=== PATIENT | male | born 1940 | race Caucasian/White ===

== ENCOUNTER → 2018-06-30 10:53 | Outpatient (BNVA) | payer OTHER, MEDICARE, SELFPAY | PROVIDERS: Visit Provider Nurse Practitioner Gerontology | DX: N40.1 Benign prostatic hyperplasia with lower urinary tract symptoms (principal); N39.41 Urge incontinence; I10 Essential (primary) hypertension | CPT/HCPCS: 51798; 81003; 99204 ==

== ENCOUNTER → 2018-07-22 11:18 | Outpatient (BNVA) | payer OTHER, MEDICARE, SELFPAY | PROVIDERS: Visit Provider Nurse Practitioner Gerontology | DX: N40.1 Benign prostatic hyperplasia with lower urinary tract symptoms (principal); N39.41 Urge incontinence | CPT/HCPCS: 51798; 99213 ==

== ENCOUNTER 2020-10-10 06:29 | Day surgery (SDC) | payer OTHER, SELFPAY ==
[2020-10-10 06:55] VITALS: BP 122/78; PULSE 52; RESP 16; TEMP 36.5; O2SAT 98
[2020-10-10] MEDS: Tropicam./Phenyleph. (1/2.5%) 5 ML BTL OD ×3 (06:55→07:06)
--- NOTE | 2020-10-10 07:04 | W.ANESPRE ---
General Info Date of Service Date Performed: 10/10/20 Height: 6 ft Weight: 105.7 kg Body Mass Index (BMI): 31.6 Surgical Procedure: Operation Date: 10/10/20 07:40 Proposed Procedures Side Surgeon p Cataract Extraction with IOL Implant Right Bebeto Dunaway MD Meds Allergies and Home Medications Allergies Allergy/AdvReac Type Severity Reaction Status Date / Time oxybutynin Allergy sleepy Verified 10/10/20 06:49 trospium Allergy Verified 10/10/20 06:49 ibuprofen [From Motrin] AdvReac Verified 10/10/20 06:49 Home Medication Medication Instructions Recorded allopurinol 300 mg tablet 300 mg PO DAILY 06/30/18 ascorbic acid (vitamin C) 500 mg 1,000 mg PO DAILY cap 06/30/18 capsule atenolol 25 mg tablet 12.5 mg PO DAILY tab 06/30/18 camphor-menthol 0.5 %-0.5 % lotion 1 applic TP BID-TID PRN 06/30/18 carboxymethylcellulose sodium 0.5 1 drp OP BID 06/30/18 % eye drops in a dropperette clotrimazole 1 % topical cream 1 applic TP BID 06/30/18 colchicine 0.6 mg capsule 0.6 mg PO DAILY 06/30/18 diclofenac sodium 50 mg 50 mg PO TID PRN 06/30/18 tablet,delayed release docusate sodium 100 mg capsule 100 mg PO BID 06/30/18 gabapentin 300 mg capsule 300 mg PO TID 06/30/18 losartan 100 mg tablet 100 mg PO DAILY 06/30/18 multivitamin 1 cap PO DAILY 06/30/18 omega-3 fatty acids 1,000 mg 1,000 mg PO DAILY 06/30/18 capsule omeprazole 20 mg capsule,delayed 20 mg PO DAILY 06/30/18 release polyethylene glycol 3350 17 gram 17 gm PO DAILY 06/30/18 oral powder packet psyllium 2 tsp PO BID gm 06/30/18 tamsulosin 0.4 mg capsule 0.8 mg PO DAILY cap 06/30/18 triamterene 75 1 tab PO DAILY 06/30/18 mg-hydrochlorothiazide 50 mg tablet mirabegron 25 mg tablet,extended 25 mg PO DAILY #90 tab 07/22/18 release 24 hr cholecalciferol (vitamin D3) 2,000 unit PO DAILY 10/06/20 nitroglycerin 0.4 mg SUBLINGUAL DIRECTED 10/06/20 nystatin 1 applic TOPICAL DAILY 10/06/20 Current Visit Medications: Current Medications Generic Name Dose Route Start Last Admin Trade Name Freq PRN Reason Stop Dose Admin Acetaminophen 1,000 mg 10/10/20 06:00 Acetaminophen 500 Mg Tab PO Q4H PRN PRN Miscellaneous Medication 0 ml 10/10/20 06:00 Prednisolone 1%, Moxifloxacin 0.5%, Nepafenac 0.1% 5ml Btl OD DIRECTED GENE Miscellaneous Medication 0 ml 10/10/20 06:00 10/10/20 07:00 Tropicam./Phenyleph. 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 Urge incontinence N39.41 Nuclear sclerotic cataract of right eye H25.11 Cortical cataract of right eye H26.9 Medical History Medical History Age-related macular degeneration Allergic rhinitis Angular cheilitis Benign neoplasm of adrenal gland Bursitis of shoulder Claustrophobia Degenerative joint disease of knee Dermatophytosis, groin DJD (degenerative joint disease) External thrombosed hemorrhoids GERD (gastroesophageal reflux disease) Gout Hammer toe Hemorrhoids HTN (hypertension) Hyperesthesia IBS (irritable bowel syndrome) Lumbar radiculopathy Multifactorial gait disorder Uses cane to ambulate Nephrolithiasis Nevus, non-neoplastic Nocturia Obesity Onychia and paronychia of toe Pain due to varicose veins of lower extremity Peripheral neuropathy Seborrheic dermatitis Seborrheic keratoses Sensorineural hearing loss Vertigo Surgical History Surgical History History of laparoscopy Hx of cholecystectomy Hx of tonsillectomy Tobacco Smoking/Tobacco Use Status: Former Tobacco Use Alcohol Alcohol Intake: current Alcohol intake frequency: a few times a week Alcohol type: wine Substance Use Substance use type: does not use Vital Signs and Lab Results Vital Signs Most Recent Vital Signs in EMR: Most Recent Vital Signs Temp Pulse Resp BP Pulse Ox 36.5 C 52 L 16 122/78 98 10/10/20 06:55 10/10/20 06:55 10/10/20 06:55 10/10/20 06:55 10/10/20 06:55 Lab Results Blood Type / Crossmatch: No Data to Display Complete Blood Count: No Data to Display Complete Metabolic Panel: No Data to Display Liver Function Panel: No Data to Display Coagulation Panel: No Data to Display Cardiac Panel: No Data to Display Arterial Blood Gas: No Data to Display Venous Blood Gas: No Data to Display Pancreas Panel: No Data to Display Thyroid Panel: No Data to Display Infectious Disease: No Data to Display Blood Cultures: No Data to Display Toxicology Panel: No Data to Display Anesthesia Assessment and Plan Anesthesia History Personal History: No History of Anesthesia Complications Family History: No Family History of Anesthesia Complications Exercise Tolerance Exercise Tolerance: Metabolic Equivalents>4 Pertinent Negatives Pertinent Negatives: No Major Cardiovascular Symptoms or Complaints and No Major Pulmonary Symptoms or Complaints Cardiac & Pulmonary Exam Cardiac Exam: Normal S1/S2 Heart Sounds Pulmonary Exam: Clear Bilateral Breath Sounds Airway Exam Known Difficult Airway: No Mallampati Class: 2 Mouth Opening: Normal (> 3cm) Thyromental Distance: Greater than 3 cm Neck Range of Motion: Full ROM Neck Circumference: Normal Teeth Condition: Removable Dentures/Plates Upper ASA Classification ASA Score: ASA 2 Emergency Case?: No NPO Status NPO Status: NPO Clears >2 hours, Solids >8 hours Anesthesia Plan Resuscitation Status: Full Code Anesthesia Technique: MAC Anesthesia Airway Planned: Natural Airway Monitors Used: Standard Monitors
[2020-10-10 07:07] VITALS: BMI 31.6
[2020-10-10] MEDS: Duovisc Viscoelastic System EACH 1 EACH (07:43)
[2020-10-10] MEDS: Lidocaine 2% Jelly 6 ML SYR (07:43)
[2020-10-10] MEDS: Povidone-Iodine Ophth 30 ML BTL (07:44)
[2020-10-10] MEDS: Balanced Salt Soln.-PLUS 500 ML BAG (07:45)
[2020-10-10] MEDS: Lidocaine 1% Pres-Free 5 ML VIAL (07:45)
[2020-10-10] MEDS: Tetracaine 0.5% 4 ML BTL OD (07:47)
--- NOTE | 2020-10-10 08:11 | PDOC.DSDIS_ITS ---
Discharge Plan Disposition Patient Disposition: HOME Condition: Good Discharge Details Reason For Visit: Cataract Attending Provider: Bebeto Dunaway Primary Care Provider: Kwesi Card [facility], [place] and New Rx's Prescriptions: No Action allopurinol 300 mg tablet 300 mg PO DAILY RF: 0 ascorbic acid (vitamin C) 500 mg capsule 1,000 mg PO DAILY RF: 0 atenolol 25 mg tablet 12.5 mg PO DAILY RF: 0 camphor-menthol 0.5-0.5 % lotion 1 applic TP BID-TID PRNRF: 0 carboxymethylcellulose sodium 0.5 % dropperette 1 drp OP BID RF: 0 clotrimazole 1 % cream 1 applic TP BID RF: 0 colchicine 0.6 mg capsule 0.6 mg PO DAILY RF: 0 diclofenac sodium 50 mg tablet,delayed release (DR/EC) 50 mg PO TID PRNRF: 0 docusate sodium 100 mg capsule 100 mg PO BID RF: 0 omega-3 fatty acids [Fish Oil Concentrate] 1,000 mg capsule 1,000 mg PO DAILY RF: 0 gabapentin 300 mg capsule 300 mg PO TID RF: 0 triamterene-hydrochlorothiazid 75-50 mg tablet 1 tab PO DAILY RF: 0 losartan 100 mg tablet 100 mg PO DAILY RF: 0 multivitamin capsule 1 cap PO DAILY RF: 0 omeprazole 20 mg capsule,delayed release(DR/EC) 20 mg PO DAILY RF: 0 polyethylene glycol 3350 17 gram powder in packet 17 gm PO DAILY RF: 0 psyllium powder 2 tsp PO BID RF: 0 tamsulosin 0.4 mg capsule 0.8 mg PO DAILY RF: 0 Myrbetriq 25 mg tablet extended release 24 hr 25 mg PO DAILY Qty: 90 RF: 3 nystatin 100,000 unit/gram Cream 1 applic TOPICAL DAILY RF: 0 nitroglycerin 0.4 mg Tablet, Sublingual 0.4 mg sublingual DIRECTED RF: 0 cholecalciferol (vitamin D3) 25 mcg (1,000 unit) Capsule 2,000 unit PO DAILY RF: 0 Discharge Instructions Stand Alone Forms: Post-op Topical Cataract, Tapan Ganey (DSU) Discharge Orders Discharge Orders: Discharge Order (Routine); Ordered 10/10/20 Ordered By: Bebeto Dunaway DS: Diagnosis Discharge Diagnosis (1) Cortical cataract of right eye: Status: Resolved (2) Nuclear sclerotic cataract of right eye: Status: Resolved (3) 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
--- NOTE | 2020-10-10 08:14 | ROE_ITS ---
Date of service: 10/10/20 Time of Service: 08:14 Operative Note Operative Note DATE OF PROCEDURE: 10/10/20 PRE-OP DIAGNOSIS: Nuclear/cortical cataract, right eye POST-OP DIAGNOSIS: same PROCEDURE: 1. Cataract extraction by phacoemulsification with intraocular lens implantation, right eye, with pupillary expansion device SURGEON: Bebeto Dunaway ANESTHESIA TYPE: Local By Surgeon and MAC Refer to Anesthesia Record PATHOLOGY: none sent COMPLICATIONS: None Patient was transported to: same day Patient's condition: stable Implants: [employer] / [employer] Tecnis [id number] Indications: Progressive decreased vision due to cataract, right eye, with poorly dilating pupil Procedure Description: CATARACT SURGERY OPERATIVE REPORT PREOPERATIVE DIAGNOSIS: 1. Nuclear/cortical cataract, right eye 2. Poorly dilating pupil, right eye POSTOPERATIVE DIAGNOSIS: Same OPERATION: 1. Cataract extraction using phacoemulsification with posterior chamber intraocular lens implant, right eye. 2. Pupillary dilation and iris stabilization using Malyugin Ring IOL: IOL Bench Boring Machine Operator/Model: Kai & Kai / RANDY Tecnis [id number] IOL Power: + 19.0 diopters IOL Serial Number: [id number] Optic Diameter: 6.0mm Haptic/Overall Diameter: 13.0mm PHACO INFO: [employer] Vision System with OZil and [employer] Cumulative Dispersed Energy (CDE): 8.07 seconds SURGEON: Bebeto Dunaway MD, REGULO ANESTHESIA: Monitored Anesthesia Care (MAC), with local sub-tenon's anesthetic infiltration COMPLICATIONS: None SPECIMENS: None INDICATIONS FOR PROCEDURE: The patient is an 80-year-old gentleman with history of exudative ARMD. He has undergone intravitreal injections for treatment. He has developed a symptomatic nuclear/cortical cataract of the right eye. The option of cataract surgery was offered to the patient and he felt he was symptomatic enough that he wished to proceed. PROCEDURE: The correct surgical eye was identified and marked as the right eye and the pupil was dilated in the preoperative area using mydriatics and cycloplegics. The dilated pupil size was 4.0 mm. He elected to proceed without oral sedation. The patient was brought to the operating room where cardiopulmonary monitoring was instituted and surgical time-out was performed, confirming the correct operative eye and IOL power. Topical anesthesia was administered and ophthalmic povidone-iodine 5% was instilled into the conjunctival fornices. Lidocaine gel was applied to the cornea and the niki-ocular area was prepped with Betadine 10% solution and draped in the usual sterile fashion for intraocular surgery, including an aperture drape. A Tegaderm transparent film dressing was cut in half and used to cover the lashes and lid margins. Care was taken to sequester the lashes and lid margins under the Tegaderm dressing. A lid speculum was placed between the lids of the operative eye and the Sabas-Cuco operating microscope was maneuvered into position. Mariya scissors were then used to make a conjunctival buttonhole approximately 6mm posterior to the limbus in the inferonasal quadrant. Blunt dissection was carried out to expose bare sclera, and a blunt-tipped sub-tenon?s anesthesia cannula was introduced and passed posteriorly along the globe where non- preserved plain lidocaine was injected into posterior sub-Tenon?s space. A sideport knife was used to make a paracentesis port inferiortemporally. I ntraocular phenylephrine/lidocaine was injected in the anterior chamber. The anterior chamber was filled with viscoelastic. A 2.4mm keratome knife was used to create a half-thickness groove at the limbus and then to construct a three- plane near-clear corneal tunnel extending 2.0mm into clear cornea superiortemporally. A 7.0 mm Malyugin Ring was then inserted into the pupillary space and engaged with the Kuglen hook. The iris was noted to be very thin and floppy. A flap was raised on the anterior capsule and capsulorhexis forceps were used to complete a continuous curvilinear capsulorhexis of 5.5 mm. Balanced salt solution was then used to perform cortical cleaving hydrodissection and nuclear hydrodelineation until the lens could be freely rotated within the capsular bag. The lens nucleus was then disassembled and removed within the capsular bag and iris plane using phacoemulsification. Residual cortical material was removed using the 45-degree angled silicone I/A tip with 0.3mm port. The posterior capsule was carefully polished to remove as much residual lens epithelial cells as safely possible. The capsular bag was then inflated and the anterior chamber deepened with viscoelastic. The lens implant described above was inserted into the capsular bag using the RANDY [place] Injector. A Kuglen hook was used to dial the IOL into position. The Malyugin Ring was removed in the reverse order of its insertion. Residual viscoelastic was then removed first from posterior to the IOL, then from the anterior chamber using the I/A handpiece. The lens implant was noted to center nicely within the capsular bag. The incisions were stromally hydrated, and the anterior chamber was reformed using BSS. Then 0.5cc of moxifloxacin 1.0mg/ml were injected into the capsular bag and anterior chamber. The incisions were checked with a Weck spear and found to be secure. Several drops of ophthalmic povidone-iodine 5% were then applied to the eye followed by two drops of Imprimis combination prednisolone/moxifloxacin/nepafenac solution. The drapes were removed and a clear plastic protective eye shield was placed over the eye. The patient was then returned to Same Day Surgery in stable condition.
[2020-10-10 08:19] VITALS: BP 125/83; PULSE 47; RESP 16; TEMP 36.4; O2SAT 98
--- NOTE | 2020-10-10 08:24 | W.ANESPOSTOP ---
Postoperative Evaluation Date, Time and Location Date Performed: 10/10/20 Time Performed: 08:25 Patient Location: Day Surgery Unit Vital Signs Most Recent Imported Vital Signs: Most Recent Vital Signs Temp Pulse Resp BP Pulse Ox 36.4 C L 47 L 16 125/83 98 10/10/20 08:19 10/10/20 08:19 10/10/20 08:19 10/10/20 08:19 10/10/20 08:19 Pain Score Most Recent Pain Score: Most Recent Pain Score Pain Level 0 10/10/20 08:19 Assessment Mental Status: Awake (Alert & Oriented to Patient Baseline) Airway and Respiratory Function: Patent airway with normal (patient baseline) respiratory exam Cardiovascular Function: Hemodynamically Stable Hydration Status: Adequately Hydrated Nausea & Vomiting: No Nausea or Vomiting Pain: Pt. Denies Any Pain Peripheral Nerve Block: Patient did not receive a nerve block
== END 2020-10-10 08:40 | disposition home or self-care (01) ==
PROVIDERS: PCP Nurse Practitioner Family; Visit Provider Ophthalmology
PROC: (CPT 66982; principal; 2020-10-10 07:30)
DX: H25.11 Age-related nuclear cataract, right eye (principal); H57.03 Miosis
CPT/HCPCS: 66982; V2632

== ENCOUNTER 2020-10-24 08:58 | Day surgery (SDC) | payer OTHER, SELFPAY ==
[2020-10-24] MEDS: Tropicam./Phenyleph. (1/2.5%) 5 ML BTL OS ×3 (09:23→09:46)
--- NOTE | 2020-10-24 09:44 | ANES.PREOP_ITS ---
General Info Date of Service Date Performed: 10/24/20 Height: 6 ft Weight: 105.7 kg Body Mass Index (BMI): 31.6 Surgical Procedure: Operation Date: 10/24/20 11:40 Proposed Procedures Side Surgeon p Cataract Extraction with IOL Implant Left Bebeto Dunaway MD Meds Allergies and Home Medications Allergies Allergy/AdvReac Type Severity Reaction Status Date / Time oxybutynin Allergy sleepy Verified 10/24/20 09:43 trospium Allergy Verified 10/24/20 09:43 ibuprofen [From Motrin] AdvReac Verified 10/24/20 09:43 Home Medication Medication Instructions Recorded allopurinol 300 mg tablet 300 mg PO DAILY 06/30/18 ascorbic acid (vitamin C) 500 mg 1,000 mg PO DAILY cap 06/30/18 capsule atenolol 25 mg tablet 12.5 mg PO DAILY tab 06/30/18 camphor-menthol 0.5 %-0.5 % lotion 1 applic TP BID-TID PRN 06/30/18 carboxymethylcellulose sodium 0.5 1 drp OP BID 06/30/18 % eye drops in a dropperette clotrimazole 1 % topical cream 1 applic TP BID 06/30/18 colchicine 0.6 mg capsule 0.6 mg PO DAILY 06/30/18 docusate sodium 100 mg capsule 100 mg PO BID 06/30/18 gabapentin 300 mg capsule 300 mg PO TID 06/30/18 losartan 100 mg tablet 100 mg PO DAILY 06/30/18 multivitamin 1 cap PO DAILY 06/30/18 omega-3 fatty acids 1,000 mg 1,000 mg PO DAILY 06/30/18 capsule polyethylene glycol 3350 17 gram 17 gm PO DAILY 06/30/18 oral powder packet tamsulosin 0.4 mg capsule 0.8 mg PO DAILY cap 06/30/18 triamterene 75 1 tab PO DAILY 06/30/18 mg-hydrochlorothiazide 50 mg tablet cholecalciferol (vitamin D3) 2,000 unit PO DAILY 10/06/20 nitroglycerin 0.4 mg SUBLINGUAL DIRECTED 10/06/20 nystatin 1 applic TOPICAL DAILY 10/06/20 mirabegron [Myrbetriq] 50 mg PO DAILY 10/24/20 Current Visit Medications: Current Medications Generic Name Dose Route Start Last Admin Trade Name Freq PRN Reason Stop Dose Admin Acetaminophen 1,000 mg 10/24/20 06:00 Acetaminophen 500 Mg Tab PO Q4H PRN PRN Miscellaneous Medication 0 ml 10/24/20 06:00 Prednisolone 1%, Moxifloxacin 0.5%, Nepafenac 0.1% 5ml Btl OS DIRECTED [facility] Miscellaneous Medication 0 ml 10/24/20 06:00 Tropicam./Phenyleph. 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 Urge incontinence N39.41 Nuclear sclerotic cataract of right eye H25.11 Cortical cataract of right eye H26.9 Medical History Medical History (Updated 10/20/20 @ 20:54 by Bebeto Dunaway MD) Age-related macular degeneration Allergic rhinitis Angular cheilitis Benign neoplasm of adrenal gland Bursitis of shoulder Claustrophobia Degenerative joint disease of knee Dermatophytosis, groin DJD (degenerative joint disease) External thrombosed hemorrhoids GERD (gastroesophageal reflux disease) Gout Hammer toe Hemorrhoids HTN (hypertension) Hyperesthesia IBS (irritable bowel syndrome) Lumbar radiculopathy Multifactorial gait disorder Uses cane to ambulate Nephrolithiasis Nevus, non-neoplastic Nocturia Obesity Onychia and paronychia of toe Pain due to varicose veins of lower extremity Peripheral neuropathy Seborrheic dermatitis Seborrheic keratoses Sensorineural hearing loss Vertigo Surgical History Surgical History History of laparoscopy Hx of cholecystectomy Hx of tonsillectomy Tobacco Smoking/Tobacco Use Status: Former Tobacco Use Alcohol Alcohol Intake: current Alcohol intake frequency: a few times a week Alcohol type: wine Substance Use Substance use type: does not use Vital Signs and Lab Results Lab Results Blood Type / Crossmatch: No Data to Display Complete Blood Count: No Data to Display Complete Metabolic Panel: No Data to Display Liver Function Panel: No Data to Display Coagulation Panel: No Data to Display Cardiac Panel: No Data to Display Arterial Blood Gas: No Data to Display Venous Blood Gas: No Data to Display Pancreas Panel: No Data to Display Thyroid Panel: No Data to Display Infectious Disease: No Data to Display Blood Cultures: No Data to Display Toxicology Panel: No Data to Display Anesthesia Assessment and Plan Anesthesia History Personal History: No History of Anesthesia Complications Family History: No Family History of Anesthesia Complications Exercise Tolerance Exercise Tolerance: Metabolic Equivalents>4 Pertinent Negatives Pertinent Negatives: No Symptoms of GERD, No Major Cardiovascular Symptoms or Complaints, No Major Pulmonary Symptoms or Complaints and No History of CVA/TIA Cardiac & Pulmonary Exam Cardiac Exam: Normal S1/S2 Heart Sounds Pulmonary Exam: Clear Bilateral Breath Sounds Airway Exam Known Difficult Airway: No Mallampati Class: 2 Mouth Opening: Normal (> 3cm) Thyromental Distance: Greater than 3 cm Neck Range of Motion: Full ROM Neck Circumference: Normal Teeth Condition: Removable Dentures/Plates Upper ASA Classification ASA Score: ASA 3 Emergency Case?: No NPO Status NPO Status: NPO Clears >2 hours, Solids >8 hours Anesthesia Plan Resuscitation Status: Full Code Anesthesia Technique: MAC Anesthesia Airway Planned: Natural Airway Monitors Used: Standard Monitors
[2020-10-24 09:45] VITALS: BMI 31.6
[2020-10-24 09:47] VITALS: BP 127/79; PULSE 54; RESP 16; TEMP 36.2; O2SAT 98
[2020-10-24] MEDS: Lidocaine 2% Jelly 6 ML SYR (10:27)
[2020-10-24] MEDS: Povidone-Iodine Ophth 30 ML BTL (10:28)
[2020-10-24] MEDS: Tetracaine 0.5% 4 ML BTL OS (10:29)
[2020-10-24] MEDS: Balanced Salt Soln.-PLUS 500 ML BAG (10:30)
[2020-10-24] MEDS: Lidocaine 1% Pres-Free 5 ML VIAL (10:31)
[2020-10-24] MEDS: Duovisc Viscoelastic System EACH 1 EACH (10:31)
--- NOTE | 2020-10-24 10:57 | W.PM.DSUDISC ---
Discharge Plan Disposition Patient Disposition: HOME Condition: Good Discharge Details Reason For Visit: Cataract Attending Provider: Bebeto Dunaway Primary Care Provider: Kwesi Card [place] Meds and New Rx's Prescriptions: No Action allopurinol 300 mg tablet 300 mg PO DAILY RF: 0 ascorbic acid (vitamin C) 500 mg capsule 1,000 mg PO DAILY RF: 0 atenolol 25 mg tablet 12.5 mg PO DAILY RF: 0 camphor-menthol 0.5-0.5 % lotion 1 applic TP BID-TID PRNRF: 0 carboxymethylcellulose sodium 0.5 % dropperette 1 drp OP BID RF: 0 clotrimazole 1 % cream 1 applic TP BID RF: 0 colchicine 0.6 mg capsule 0.6 mg PO DAILY RF: 0 docusate sodium 100 mg capsule 100 mg PO BID RF: 0 omega-3 fatty acids [Fish Oil Concentrate] 1,000 mg capsule 1,000 mg PO DAILY RF: 0 gabapentin 300 mg capsule 300 mg PO TID RF: 0 triamterene-hydrochlorothiazid 75-50 mg tablet 1 tab PO DAILY RF: 0 losartan 100 mg tablet 100 mg PO DAILY RF: 0 multivitamin capsule 1 cap PO DAILY RF: 0 polyethylene glycol 3350 17 gram powder in packet 17 gm PO DAILY RF: 0 tamsulosin 0.4 mg capsule 0.8 mg PO DAILY RF: 0 nystatin 100,000 unit/gram Cream 1 applic TOPICAL DAILY RF: 0 nitroglycerin 0.4 mg Tablet, Sublingual 0.4 mg sublingual DIRECTED RF: 0 cholecalciferol (vitamin D3) 25 mcg (1,000 unit) Capsule 2,000 unit PO DAILY RF: 0 Myrbetriq 25 mg tablet extended release 24 hr 50 mg PO DAILY RF: 0 Discharge Instructions Stand Alone Forms: Post-op Topical Cataract, Tapan Figueoraey (DSU) Discharge Orders Discharge Orders: Discharge Order (Routine); Ordered 10/24/20 Ordered By: Bebeto Dunaway DS: Diagnosis Discharge Diagnosis (1) Cortical cataract of left eye: Status: Resolved (2) Nuclear sclerotic cataract of left eye: Status: Resolved
--- NOTE | 2020-10-24 10:57 | W.ANESPOSTOP ---
Postoperative Evaluation Date, Time and Location Date Performed: 10/24/20 Time Performed: 10:57 Patient Location: Day Surgery Unit Vital Signs Most Recent Imported Vital Signs: Most Recent Vital Signs Temp Pulse Resp BP Pulse Ox 36.2 C L 54 L 16 127/79 98 10/24/20 09:47 10/24/20 09:47 10/24/20 09:47 10/24/20 09:47 10/24/20 09:47 Most Recent Manually Entered Vital Signs: Adult Blood Pressure: 137/83 Heart Rate: 52 Respirations: 16 Oxygen Saturation (%): 99 Temperature (C): 36.3 C Pain Score (0-10 Scale): 0 Pain Score Most Recent Pain Score: Most Recent Pain Score Pain Level 4 10/24/20 09:47 Assessment Mental Status: Awake (Alert & Oriented to Patient Baseline) Airway and Respiratory Function: Patent airway with normal (patient baseline) respiratory exam Cardiovascular Function: Hemodynamically Stable Hydration Status: Adequately Hydrated Nausea & Vomiting: No Nausea or Vomiting Pain: Pt. Denies Any Pain Peripheral Nerve Block: Other (Local by Dr. Dunaway)
--- NOTE | 2020-10-24 10:58 | ROE_ITS ---
Date of service: 10/24/20 Time of Service: 10:58 Operative Note Operative Note DATE OF PROCEDURE: 10/24/20 PRE-OP DIAGNOSIS: Nuclear/cortical cataract, left eye Poorly dilating pupil, left eye POST-OP DIAGNOSIS: same PROCEDURE: Cataract extraction by phacoemulsification with intraocular lens implantation, left eye, with pupillary expansion device SURGEON: Bebeto Dunaway ANESTHESIA TYPE: Local By Surgeon and MAC Refer to Anesthesia Record ESTIMATED BLOOD LOSS: 0 PATHOLOGY: none sent COMPLICATIONS: None Patient was transported to: same day Patient's condition: stable Implants: [employer] / [employer] Tecnis [id number] Indications: Progressive decreased vision, left eye Procedure Description: CATARACT SURGERY OPERATIVE REPORT PREOPERATIVE DIAGNOSIS: 1. Nuclear/cortical cataract, left eye 2. Poorly dilating pupil, left eye POSTOPERATIVE DIAGNOSIS: Same OPERATION: 1. Cataract extraction using phacoemulsification with posterior chamber intraocular lens implant, left eye. 2. Pupillary dilation and iris stabilization using Malyugin Ring IOL; IOL Disposition Clerk/Model: [employer] Kai / RANDY Tecnis [id number] IOL Power: + 19.5 diopters IOL Serial Number: [id number] Optic Diameter: 6.0 mm Haptic/Overall Diameter: 13.00 mm PHACO INFO: Dany Stigni.[employer]urion Vision System with OZil and Active [employer]uidics Cumulative Dispersed Energy (CDE): 10.31 seconds SURGEON: Bebeto Dunaway MD, REGULO ANESTHESIA: Monitored Anesthesia Care (MAC), with local sub-tenon's anesthetic infiltration COMPLICATIONS: None SPECIMENS: None INDICATIONS FOR PROCEDURE: The patient is an 80-year-old gentleman with history of diminished visual acuity in both eyes secondary to the 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 He has a history of exudative ARMD of the right eye. He has already undergone cataract surgery in the right eye. He now presents for cataract surgery in the left eye. PROCEDURE: The correct surgical eye was identified and marked as the left eye and the pupil was dilated in the preoperative area using mydriatics, cycloplegics, and NSAIDS (except in aspirin allergic patients). The dilated pupil size was 4.0 mm. He elected to proceed without oral sedation. The skyla ent was brought to the operating room where cardiopulmonary monitoring was instituted and surgical time-out was performed, confirming the correct operative eye and IOL power. Topical anesthesia was administered and ophthalmic povidone-iodine 5% was instilled into the conjunctival fornices. Lidocaine gel was applied to the cornea and the niki-ocular area was prepped with Betadine 10% solution and draped in the usual sterile fashion for intraocular surgery, including an aperture drape. A Tegaderm transparent film dressing was cut in half and used to cover the lashes and lid margins. Care was taken to sequester the lashes and lid margins under the Tegaderm dressing. A lid speculum was placed between the lids of the operative eye and the [employer] operating microscope was maneuvered into position. Mariya scissors were then used to make a conjunctival buttonhole approximately 6mm posterior to the limbus in the inferonasal quadrant. Blunt dissection was carried out to expose bare sclera, and a blunt-tipped sub-tenon?s anesthesia cannula was introduced and passed posteriorly along the globe where non- preserved plain lidocaine was injected into posterior sub-Tenon?s space. A si deport knife was used to make a paracentesis port superiorly/superiortemporally. Intraocular phenylephrine/lidocaine was injected into the anterior chamber. The anterior chamber was then filled with viscoelastic. A 2.4mm keratome knife was used to create a half-thickness groove at the limbus and then to construct a three-plane near-clear corneal tunnel extending 2.0mm into clear cornea at the temporal position. A 7.0 mm Malyugin Ring was then inserted into the pupillary space and engaged with the Kuglen hook. A flap was raised on the anterior capsule and capsulorhexis forceps were used to complete a continuous curvilinear capsulorhexis of 5.0 mm. Balanced salt solution was then used to perform cortical cleaving hydrodissection and nuclear hydrodelineation until the lens could be freely rotated within the capsular bag. The lens nucleus was then disassembled and removed within the capsular bag and iris plane using phacoemulsification. Residual cortical material was removed using the 45-degree angled silicone I/A tip with 0.3mm port. The posterior capsule was carefully polished to remove as much residual lens epithelial cells as safely possible. The capsular bag was then inflated and the anterior chamber deepened with viscoelastic. The lens implant described above was inserted into the capsular bag using the RANDY [place] Injector. A Kuglen hook was used to dial the IOL into position. The Malyugin Ring was removed in the reverse order of its insertion. Residual viscoelastic was then removed first from posterior to the IOL, then from the anterior chamber using the I/A handpiece. The lens implant was noted to center nicely within the capsular bag. The incisions were stromally hydrated, and the anterior chamber was reformed using BSS. Then 0.5cc of moxifloxacin 1.0mg/ml were injected into the capsular bag and anterior chamber. The incisions were checked with a Weck spear and found to be secure. Several drops of ophthalmic povidone-iodine 5% were then applied to the eye followed by two drops of Imprimis combination prednisolone/moxifloxacin/nepafenac solution. The drapes were removed and a clear plastic protective eye shield was placed over the eye. The patient was then returned to [facility] in stable condition.
[2020-10-24 11:00] VITALS: BP 137/83; PULSE 52; RESP 16; TEMP 36.3; TEMPC 36.3; O2SAT 97; O2SAT 99
== END 2020-10-24 11:25 | disposition home or self-care (01) ==
PROVIDERS: PCP Nurse Practitioner Family; Visit Provider Ophthalmology
PROC: (CPT 66982; principal; 2020-10-24 11:30)
DX: H25.12 Age-related nuclear cataract, left eye (principal); H57.03 Miosis
CPT/HCPCS: 66982; V2632

== ENCOUNTER → 2023-07-19 01:09 | Outpatient (CLI) | payer MEDICARE, SELFPAY ==
--- NOTE | 2023-07-19 | DI.MRI_ITS ---
Exam(s) MR LUMBAR SPINE WO EXAM: MR LUMBAR SPINE WO CLINICAL HISTORY: BILAT LOW EXT NUMBNESS,URINARY RETENTION,? CAUDA EQUINA. TECHNIQUE: Multiplanar multisequence MRI of the Lumbar spine was performed. COMPARISON: MR MR LS SPINE WO CONTRAST from 07/07/2021 CR XR LS SPINE 2-3 VIEWS from 07/15/2023 FINDINGS: Bones: The last intervertebral disc space is designated the L5/S1 level for the numbering purpose of this ex amination. The vertebral body heights are well maintained. Alignment: Degenerative scoliosis. Marrow signal: Degenerative signal changes in the endplates. Cord: The conus tip ends at the L1-2. It is of normal size and signal intensity. T12-L1: Mild disc bulging. No focal disc herniation is present. No central spinal canal stenosis.No neural foraminal stenosis. L1-2: Severe narrowing of disc height eccentric to the right where there are prominent endplate osteo phytes. No focal disc herniation is present. Severe right neural foraminal narrowing. Moderate left neural foraminal narrowing. Mild central canal stenosis.. L2-3: Severe loss of disc height, eccentric toward the right with prominent endplate osteophytes. Bro ad-based disc bulging. Severe right and moderate left neural foraminal narrowing. Moderate central ca nal stenosis. L3-4: No focal disc herniation is present. Eccentric loss of disc height toward the left. Endplate os teophytes and broad-based disc bulging. Facet degenerative changes. Severe central canal stenosis. Mi ld right and severe left neural foraminal narrowing. L4-5: No focal disc herniation is present. Disc osteophytes eccentric toward the left. Severe left ne ural foraminal narrowing. No significant right neural foraminal narrowing. Moderate central canal enid nosis.. L5-S1: No focal disc herniation is present. Disc osteophytes eccentric toward the left. Facet degener ative changes. Severe left neural foraminal narrowing and mild right neural foraminal narrowing. No s ignificant central canal stenosis.. The visualized SI joints and sacrum are unremarkable. Soft tissues: The paraspinal soft tissues are unremarkable. IMPRESSION: Advanced degenerative disc changes throughout. Facet degenerative changes also present. No focal disc herniation. Severe central canal stenosis at L3-4. Moderate central canal stenosis at L4-5 and L2-3. Severe multilevel neural foraminal narrowing. DATA REPOSITORY:
== END ==
PROVIDERS: PCP Nurse Practitioner Family; Visit Provider Legal Medicine
DX: M48.062 Spinal stenosis, lumbar region with neurogenic claudication (principal)
CPT/HCPCS: 72148